=== PATIENT | male | born 1935 | race Caucasian/White ===

== ENCOUNTER 2019-05-31 15:40 | Observation (INO) ==
[2019-05-31 16:24] LABS: Basophils % 0.3 %; Eosinophils # 0.2 K/mcL (0.0-0.6); Eosinophils % 2.2 %; Hematocrit 38.6 % (37.5-50.1); Immature Granulocytes % 0.3 % (0-4); Lymphocytes # 1.8 K/mcL (0.6-4.6); Lymphocytes % 23.2 %; Mean Corpuscular HGB Conc 33.7 g/dL (31.6-35.5); Mean Corpuscular Hemoglobin 32.1 pg (28.0-33.3); Mean Corpuscular Volume 95.3 fL (83.0-100.0); Mean Platelet Volume 10.5 fL (9.4-12.4); Monocytes # 0.9 K/mcL (0.0-1.3); Monocytes % 11.1 %; Neutrophils # 4.9 K/mcL (1.6-8.9); Platelet Count 198 K/mcL (140-400); Red Blood Count 4.05 M/mcL (4.19-5.50); Red Cell Distribution Width 12.9 % (11.5-14.5); Segmented Neutrophils % 62.9 %; White Blood Count 7.8 K/mcL (4.3-11.1)
[2019-05-31 16:40] LABS: BUN/Creatinine Ratio 22 (6-26); Blood Urea Nitrogen 29 mg/dL (8-23); Calcium 9.4 mg/dL (8.6-10.3); Carbon Dioxide 27 mEq/L (23-29); Chloride 102 mEq/L (98-107); Glucose 57 mg/dL (70-105); Osmolality,Calculated 288 (280-300); Potassium 4.2 mEq/L (3.5-5.1); Sodium 137 mEq/L (136-145); eGFR For African Americans > 60 (> 60); eGFR For Non-African Americans 51 (> 60)
[2019-05-31 16:41] LABS: Troponin I 0.03 ng/mL (< 0.04)
[2019-05-31 16:54] LABS: Thyroid Stimulating Hormone 2.299 mcIU/mL (0.340-5.600)
[2019-05-31] MEDS ORDERED: KETOTIFEN FUMARATE OP PRN (17:14)
[2019-05-31] MEDS ORDERED: Naloxone 0.4 MG/ML INJ IVP PRN (17:53)
[2019-05-31] MEDS ORDERED: Dextrose Gel 15 GM/37.5 ML TUBE PO PRN ×2 (18:17)
[2019-05-31] MEDS ORDERED: D5% in Water 1,000 ML IVC PRN (18:17)
[2019-05-31] MEDS ORDERED: *HR* Dextrose 50 % in Water (Syg) 50 ML SYRINGE IVP PRN (18:17)
[2019-05-31] MEDS: Insulin LISPRO 300 UNITS/3 ML VIAL SQ SCH ×2 (19:23→20:30)
[2019-05-31] MEDS: Apixaban 5 MG TABLET PO SCH (20:30)
[2019-05-31 21:33] LABS: Bilirubin,Urine Negative (Negative); Blood,Urine Negative (Negative); Clarity,Urine Clear (Clear); Color,Urine Yellow (Yellow); Glucose,Urine (UA) Normal (Normal); Ketones,Urine Negative (Negative); Leukocyte Esterase,Urine Negative (Negative); Nitrite,Urine Negative (Negative); Protein,Urine Negative (Neg-Trace); Specific Gravity,Urine 1.011 (1.010-1.025); Urobilinogen,Urine Normal (Normal)
[2019-05-31 23:09] LABS: Adenovirus Not Detected (Not Detect); Bordetella Pertussis Not Detected (Not Detect); Chlamydophila pneumoniae Not Detected (Not Detect); Coronavirus 229E Not Detected (Not Detect); Coronavirus HKU1 Not Detected (Not Detect); Coronavirus NL63 Not Detected (Not Detect); Coronavirus OC43 Not Detected (Not Detect); Human Metapneumovirus Not Detected (Not Detect); Human Rhinovirus/Enterovirus Not Detected (Not Detect); Influenza A Subtype 2009 H1 Not Detected (Not Detect); Influenza A Untypeable Not Detected (Not Detect); Influenza B Not Detected (Not Detect); Mycoplasma pneumoniae Not Detected (Not Detect); Parainfluenza Virus 1 Not Detected (Not Detect); Parainfluenza Virus 2 Not Detected (Not Detect); Parainfluenza Virus 3 Not Detected (Not Detect); Parainfluenza Virus 4 Not Detected (Not Detect); Respiratory Syncytial Virus Not Detected (Not Detect)
[2019-06-01 01:37] LABS: Hematocrit 36.5 % (37.5-50.1); Mean Corpuscular HGB Conc 32.9 g/dL (31.6-35.5); Mean Corpuscular Hemoglobin 31.4 pg (28.0-33.3); Mean Corpuscular Volume 95.5 fL (83.0-100.0); Mean Platelet Volume 10.8 fL (9.4-12.4); Platelet Count 175 K/mcL (140-400); Red Blood Count 3.82 M/mcL (4.19-5.50); White Blood Count 7.2 K/mcL (4.3-11.1)
[2019-06-01 02:02] LABS: BUN/Creatinine Ratio 21 (6-26); Blood Urea Nitrogen 26 mg/dL (8-23); Calcium 8.9 mg/dL (8.6-10.3); Carbon Dioxide 25 mEq/L (23-29); Chloride 101 mEq/L (98-107); Glucose 259 mg/dL (70-105); Osmolality,Calculated 296 (280-300); Potassium 4.1 mEq/L (3.5-5.1); Sodium 136 mEq/L (136-145); eGFR For African Americans > 60 (> 60); eGFR For Non-African Americans 55 (> 60)
[2019-06-01] MEDS: Insulin LISPRO 300 UNITS/3 ML VIAL SQ SCH ×4 (10:31→20:43)
[2019-06-01] MEDS: Furosemide 40 MG TABLET PO SCH (10:31)
[2019-06-01] MEDS: Apixaban 5 MG TABLET PO SCH ×2 (10:31→20:45)
[2019-06-02 02:21] LABS: Hematocrit 37.6 % (37.5-50.1); Hemoglobin 12.5 g/dL (12.9-16.9); Mean Corpuscular HGB Conc 33.2 g/dL (31.6-35.5); Mean Corpuscular Hemoglobin 31.4 pg (28.0-33.3); Mean Corpuscular Volume 94.5 fL (83.0-100.0); Mean Platelet Volume 10.3 fL (9.4-12.4); Platelet Count 180 K/mcL (140-400); Red Blood Count 3.98 M/mcL (4.19-5.50); Red Cell Distribution Width 12.6 % (11.5-14.5)
[2019-06-02 02:33] LABS: BUN/Creatinine Ratio 16 (6-26); Blood Urea Nitrogen 20 mg/dL (8-23); Carbon Dioxide 27 mEq/L (23-29); Chloride 102 mEq/L (98-107); Glucose 246 mg/dL (70-105); Osmolality,Calculated 293 (280-300); Potassium 4.3 mEq/L (3.5-5.1); Sodium 136 mEq/L (136-145); eGFR For African Americans > 60 (> 60); eGFR For Non-African Americans 56 (> 60)
[2019-06-02] MEDS: Apixaban 5 MG TABLET PO SCH ×2 (09:21→20:59)
[2019-06-02] MEDS: Furosemide 40 MG TABLET PO SCH (09:21)
[2019-06-02] MEDS: Insulin LISPRO 300 UNITS/3 ML VIAL SQ SCH ×4 (09:22→20:54)
[2019-06-02] MEDS: Aspirin Enteric Coated 81 MG Tablet PO SCH (13:20)
[2019-06-02 16:35] LABS: VBG HCO3 29 mEq/L (21-27); VBG PCO2 47 mmHg (41-51); VBG PO2 103 mmHg (25-50)
[2019-06-03 02:02] LABS: Hematocrit 38.1 % (37.5-50.1); Hemoglobin 12.7 g/dL (12.9-16.9); Mean Corpuscular HGB Conc 33.3 g/dL (31.6-35.5); Mean Platelet Volume 10.4 fL (9.4-12.4); Platelet Count 187 K/mcL (140-400); Red Blood Count 3.97 M/mcL (4.19-5.50); Red Cell Distribution Width 12.6 % (11.5-14.5); White Blood Count 8.4 K/mcL (4.3-11.1)
[2019-06-03 02:18] LABS: BUN/Creatinine Ratio 20 (6-26); Blood Urea Nitrogen 23 mg/dL (8-23); Carbon Dioxide 27 mEq/L (23-29); Chloride 101 mEq/L (98-107); Glucose 171 mg/dL (70-105); Osmolality,Calculated 294 (280-300); Potassium 4.2 mEq/L (3.5-5.1); Sodium 138 mEq/L (136-145); eGFR For African Americans > 60 (> 60); eGFR For Non-African Americans 60 (> 60)
[2019-06-03] MEDS: Apixaban 5 MG TABLET PO SCH (07:56)
[2019-06-03] MEDS: Insulin LISPRO 300 UNITS/3 ML VIAL SQ SCH ×3 (07:56→17:07)
[2019-06-03] MEDS: Furosemide 40 MG TABLET PO SCH (07:56)
[2019-06-03] MEDS: Aspirin Enteric Coated 81 MG Tablet PO SCH (07:56)
[2019-06-03 15:22] VITALS: BP 166/62
== END 2019-06-03 18:35 | disposition home or self-care (01) ==
LOC: 3BNU 15:40 → EMEROOARM 15:40 → SUATTDRO 17:01 → 3BNU 18:24
PROVIDERS: ADMIT Family Medicine; ATTEND Family Medicine

== ENCOUNTER 2019-08-19 15:36 | Observation (INO) ==
[2019-08-19] MEDS ORDERED: Naloxone 0.4 MG/ML INJ IVP PRN (17:41)
[2019-08-19] MEDS ORDERED: Nitroglycerin 0.4 MG TAB.SUBL SL PRN (18:08)
[2019-08-19] MEDS ORDERED: *HR* Dextrose 50 % in Water (Syg) 50 ML SYRINGE IVP PRN (18:09)
[2019-08-19] MEDS ORDERED: Dextrose Gel 15 GM/37.5 ML TUBE PO PRN ×2 (18:09)
[2019-08-19] MEDS ORDERED: D5% in Water 1,000 ML IVC PRN (18:09)
[2019-08-19] MEDS: Apixaban 5 MG TABLET PO SCH (20:12)
[2019-08-19] MEDS: Insulin NPH/REG 70/30 100 UNIT/ML (x5UNIT) SQ SCH (20:13)
[2019-08-20 04:08] LABS: Basophils % 0.3 %; Eosinophils # 0.2 K/mcL (0.0-0.6); Eosinophils % 2.2 %; Hematocrit 38.9 % (37.5-50.1); Hemoglobin 13.2 g/dL (12.9-16.9); Immature Granulocytes % 0.4 % (0-4); Lymphocytes # 2.1 K/mcL (0.6-4.6); Lymphocytes % 27.8 %; Mean Corpuscular HGB Conc 33.9 g/dL (31.6-35.5); Mean Corpuscular Hemoglobin 31.7 pg (28.0-33.3); Mean Corpuscular Volume 93.3 fL (83.0-100.0); Mean Platelet Volume 9.6 fL (9.4-12.4); Monocytes # 0.9 K/mcL (0.0-1.3); Monocytes % 11.7 %; Neutrophils # 4.4 K/mcL (1.6-8.9); Platelet Count 217 K/mcL (140-400); Red Blood Count 4.17 M/mcL (4.19-5.50); Red Cell Distribution Width 12.7 % (11.5-14.5); Segmented Neutrophils % 57.6 %; White Blood Count 7.7 K/mcL (4.3-11.1)
[2019-08-20 04:26] LABS: BUN/Creatinine Ratio 20 (6-26); Blood Urea Nitrogen 26 mg/dL (8-23); Calcium 9.2 mg/dL (8.6-10.3); Carbon Dioxide 27 mEq/L (23-29); Chloride 106 mEq/L (98-107); Glucose 53 mg/dL (70-105); Osmolality,Calculated 294 (280-300); Sodium 141 mEq/L (136-145); eGFR For African Americans > 60 (> 60); eGFR For Non-African Americans 52 (> 60)
[2019-08-20] MEDS: Insulin NPH/REG 70/30 100 UNIT/ML (x5UNIT) SQ SCH (07:21)
[2019-08-20] MEDS: Apixaban 5 MG TABLET PO SCH (08:17)
[2019-08-20] MEDS ORDERED: Aspirin Enteric Coated 81 MG Tablet PO SCH (09:00)
[2019-08-20] MEDS ORDERED: Isosorbide MONOnitrate (24 HR) 30 MG TAB.ER.24H PO SCH (09:00)
[2019-08-20] MEDS ORDERED: Furosemide 40 MG TABLET PO SCH (09:00)
[2019-08-20 12:44] VITALS: BP 131/50
== END 2019-08-20 17:15 | disposition home or self-care (01) ==
LOC: 3BNU → SUATTDRO 17:03
PROVIDERS: ADMIT Internal Medicine; ATTEND Internal Medicine

== ENCOUNTER 2021-10-13 13:02 | Inpatient (IN) ==
[2021-10-13 13:46] LABS: Eosinophils # 0.1 K/mcL (0.0-0.6); Eosinophils % 0.7 %; Hematocrit 37.4 % (37.5-50.1); Hemoglobin 12.6 g/dL (12.9-16.9); Immature Granulocytes % 0.5 % (0-4); Lymphocytes # 0.5 K/mcL (0.6-4.6); Lymphocytes % 5.9 %; Mean Corpuscular HGB Conc 33.7 g/dL (31.6-35.5); Mean Corpuscular Hemoglobin 31.7 pg (28.0-33.3); Mean Corpuscular Volume 94.2 fL (83.0-100.0); Mean Platelet Volume 9.3 fL (9.4-12.4); Monocytes # 0.8 K/mcL (0.0-1.3); Monocytes % 10.8 %; Platelet Count 264 K/mcL (140-400); Red Blood Count 3.97 M/mcL (4.19-5.50); Red Cell Distribution Width 12.9 % (11.5-14.5); Segmented Neutrophils % 82.1 %; White Blood Count 7.6 K/mcL (4.3-11.1)
[2021-10-13 13:51] LABS: VBG HCO3 27 mEq/L (21-27); VBG PCO2 48 mmHg (41-51); VBG PH 7.36 pH Units (7.32-7.42); VBG PO2 28 mmHg (25-50)
[2021-10-13 14:09] LABS: Alanine Aminotransferase 16 Units/L (7-52); Albumin 3.2 g/dL (3.5-5.7); Alkaline Phosphatase 151 Units/L (34-104); Aspartate Amino Transferase 21 Units/L (13-39); BUN/Creatinine Ratio 24 (6-26); Bilirubin,Direct 0.4 mg/dL (0.0-0.2); Bilirubin,Indirect 0.8 mg/dL (0.0-1.0); Bilirubin,Total 1.2 mg/dL (0.3-1.0); Blood Urea Nitrogen 23 mg/dL (8-23); C-Reactive Protein 248 mg/L (Less than 10); Calcium 8.8 mg/dL (8.6-10.3); Carbon Dioxide 27 mEq/L (23-29); Chloride 96 mEq/L (98-107); Globulin 3.3 g/dL (2.4-3.5); Glucose 223 mg/dL (70-105); Osmolality,Calculated 283 (280-300); Potassium 3.8 mEq/L (3.5-5.1); Sodium 131 mEq/L (136-145); Total Protein 6.5 g/dL (6.4-8.9); Troponin I 0.04 ng/mL (< 0.04); eGFR For African Americans > 60 (> 60); eGFR For Non-African Americans > 60 (> 60)
[2021-10-13 14:11] LABS: Neutrophils # 6.2 K/mcL (1.6-8.9)
[2021-10-13] MEDS ORDERED: Ondansetron ODT 4 MG TAB.RAPDIS SL PRN (15:57)
[2021-10-13] MEDS ORDERED: Naloxone 0.4 MG/ML INJ IVP PRN (15:57)
[2021-10-13] MEDS ORDERED: D5% in Water 1,000 ML IVC PRN (16:06)
[2021-10-13] MEDS ORDERED: *HR* Dextrose 50 % in Water (Syg) 50 ML SYRINGE IVP PRN (16:06)
[2021-10-13] MEDS ORDERED: Dextrose Gel 15 GM/37.5 ML TUBE PO PRN ×2 (16:06)
[2021-10-13 18:22] LABS: Estimated Average Glucose 209 mg/dl; Hemoglobin A1C 8.9 %
[2021-10-13] MEDS: Insulin LISPRO 300 UNITS/3 ML VIAL SUBQ SCH (18:27)
[2021-10-13 18:56] LABS: Folate 12.3 ng/mL (3.0-16.0)
[2021-10-13] MEDS ORDERED: (Ketotifen Fumarate [Zaditor] 5 ML Drops) OP PRN (20:09)
[2021-10-13] MEDS ORDERED: Nitroglycerin 0.4 MG TAB.SUBL SL PRN (20:09)
[2021-10-13 21:17] LABS: Procalcitonin 0.19 ng/mL (0.00-0.15)
[2021-10-13] MEDS: Lactobacillus 1 EACH CAP.SPRINK PO SCH (21:24)
[2021-10-13] MEDS: Apixaban 5 MG TABLET PO SCH (21:24)
[2021-10-13] MEDS: Lidocaine 5% OINT 35 APPL/35.44 GM TUBE TP SCH (21:24)
[2021-10-13] MEDS: Artificial Tears SOLN 15 ML BOTTLE BOTH EYES SCH (21:24)
[2021-10-14 00:54] LABS: Basophils % 0.2 %; Hematocrit 35.5 % (37.5-50.1); Hemoglobin 11.7 g/dL (12.9-16.9); Immature Granulocytes % 0.4 % (0-4); Lymphocytes # 0.2 K/mcL (0.6-4.6); Lymphocytes % 4.5 %; Mean Corpuscular Hemoglobin 31.2 pg (28.0-33.3); Mean Corpuscular Volume 94.7 fL (83.0-100.0); Mean Platelet Volume 9.4 fL (9.4-12.4); Monocytes # 0.3 K/mcL (0.0-1.3); Monocytes % 5.3 %; Neutrophils # 4.8 K/mcL (1.6-8.9); Platelet Count 246 K/mcL (140-400); Red Blood Count 3.75 M/mcL (4.19-5.50); Red Cell Distribution Width 12.9 % (11.5-14.5); Segmented Neutrophils % 89.6 %; White Blood Count 5.3 K/mcL (4.3-11.1)
[2021-10-14 02:43] LABS: BUN/Creatinine Ratio 25 (6-26); Blood Urea Nitrogen 25 mg/dL (8-23); Calcium 8.3 mg/dL (8.6-10.3); Carbon Dioxide 20 mEq/L (23-29); Chloride 98 mEq/L (98-107); Glucose 325 mg/dL (70-105); Osmolality,Calculated 285 (280-300); Potassium 4.6 mEq/L (3.5-5.1); Sodium 129 mEq/L (136-145); eGFR For African Americans > 60 (> 60); eGFR For Non-African Americans > 60 (> 60)
[2021-10-14] MEDS: Lactobacillus 1 EACH CAP.SPRINK PO SCH ×2 (09:17→21:03)
[2021-10-14] MEDS: Isosorbide MONOnitrate (24 HR) 30 MG TAB.ER.24H PO SCH (09:17)
[2021-10-14] MEDS: Apixaban 5 MG TABLET PO SCH ×2 (09:17→21:03)
[2021-10-14] MEDS: Artificial Tears SOLN 15 ML BOTTLE BOTH EYES SCH ×3 (09:18→21:03)
[2021-10-14] MEDS: Lidocaine 5% OINT 35 APPL/35.44 GM TUBE TP SCH ×4 (09:18→21:03)
[2021-10-14] MEDS: Aspirin Enteric Coated 81 MG Tablet PO SCH (09:18)
[2021-10-14] MEDS: Loratadine 10 MG TABLET PO SCH (09:18)
[2021-10-14] MEDS: Insulin LISPRO 300 UNITS/3 ML VIAL SUBQ SCH ×3 (09:19→17:19)
[2021-10-14] MEDS: Insulin DETEMIR 100 UNIT/ML X5UNITS SUBQ SCH (13:56)
[2021-10-15 07:10] LABS: Basophils % 0.1 %; Hematocrit 33.9 % (37.5-50.1); Hemoglobin 11.7 g/dL (12.9-16.9); Immature Granulocytes % 1.1 % (0-4); Lymphocytes # 0.6 K/mcL (0.6-4.6); Lymphocytes % 4.7 %; Mean Corpuscular HGB Conc 34.5 g/dL (31.6-35.5); Mean Corpuscular Hemoglobin 32.5 pg (28.0-33.3); Mean Corpuscular Volume 94.2 fL (83.0-100.0); Mean Platelet Volume 9.6 fL (9.4-12.4); Monocytes % 8.3 %; Platelet Count 297 K/mcL (140-400); Red Cell Distribution Width 12.9 % (11.5-14.5); Segmented Neutrophils % 85.8 %
[2021-10-15 07:30] LABS: BUN/Creatinine Ratio 39 (6-26); Blood Urea Nitrogen 37 mg/dL (8-23); Calcium 9.1 mg/dL (8.6-10.3); Carbon Dioxide 27 mEq/L (23-29); Chloride 98 mEq/L (98-107); Glucose 118 mg/dL (70-105); Magnesium 2.2 mg/dL (1.6-2.6); Osmolality,Calculated 282 (280-300); Phosphorous 2.5 mg/dL (2.7-4.5); Potassium 4.1 mEq/L (3.5-5.1); Sodium 131 mEq/L (136-145); eGFR For African Americans > 60 (> 60); eGFR For Non-African Americans > 60 (> 60)
[2021-10-15 07:36] LABS: Neutrophils # 10.1 K/mcL (1.6-8.9); White Blood Count 11.8 K/mcL (4.3-11.1)
[2021-10-15] MEDS: Insulin LISPRO 300 UNITS/3 ML VIAL SUBQ SCH ×4 (08:56→20:21)
[2021-10-15] MEDS: Artificial Tears SOLN 15 ML BOTTLE BOTH EYES SCH ×3 (08:57→20:23)
[2021-10-15] MEDS: Loratadine 10 MG TABLET PO SCH (08:59)
[2021-10-15] MEDS: Isosorbide MONOnitrate (24 HR) 30 MG TAB.ER.24H PO SCH (08:59)
[2021-10-15] MEDS: Insulin DETEMIR 100 UNIT/ML X5UNITS SUBQ SCH (08:59)
[2021-10-15] MEDS: Lactobacillus 1 EACH CAP.SPRINK PO SCH ×2 (08:59→20:22)
[2021-10-15] MEDS: Aspirin Enteric Coated 81 MG Tablet PO SCH (08:59)
[2021-10-15] MEDS: Apixaban 5 MG TABLET PO SCH ×2 (08:59→20:22)
[2021-10-15] MEDS: Lidocaine 5% OINT 35 APPL/35.44 GM TUBE TP SCH ×4 (09:01→20:23)
[2021-10-15] MEDS ORDERED: Insulin DETEMIR 100 UNIT/ML X5UNITS SUBQ ONE (21:30)
[2021-10-15] MEDS ORDERED: Insulin LISPRO 300 UNITS/3 ML VIAL SUBQ ONE (23:58)
[2021-10-16 01:50] LABS: Basophils % 0.1 %; Hematocrit 32.9 % (37.5-50.1); Hemoglobin 11.1 g/dL (12.9-16.9); Immature Granulocytes % 0.7 % (0-4); Lymphocytes # 0.6 K/mcL (0.6-4.6); Lymphocytes % 4.2 %; Mean Corpuscular HGB Conc 33.7 g/dL (31.6-35.5); Mean Corpuscular Hemoglobin 31.8 pg (28.0-33.3); Mean Corpuscular Volume 94.3 fL (83.0-100.0); Mean Platelet Volume 9.7 fL (9.4-12.4); Monocytes % 7.2 %; Neutrophils # 11.6 K/mcL (1.6-8.9); Platelet Count 328 K/mcL (140-400); Red Blood Count 3.49 M/mcL (4.19-5.50); Red Cell Distribution Width 12.8 % (11.5-14.5); Segmented Neutrophils % 87.8 %; White Blood Count 13.2 K/mcL (4.3-11.1)
[2021-10-16 02:05] LABS: BUN/Creatinine Ratio 45 (6-26); Blood Urea Nitrogen 45 mg/dL (8-23); Calcium 8.8 mg/dL (8.6-10.3); Carbon Dioxide 27 mEq/L (23-29); Chloride 98 mEq/L (98-107); Glucose 280 mg/dL (70-105); Osmolality,Calculated 294 (280-300); Potassium 4.5 mEq/L (3.5-5.1); Sodium 131 mEq/L (136-145); eGFR For African Americans > 60 (> 60); eGFR For Non-African Americans > 60 (> 60)
[2021-10-16 02:07] LABS: Magnesium 2.1 mg/dL (1.6-2.6); Phosphorous 2.5 mg/dL (2.7-4.5)
[2021-10-16] MEDS: Insulin LISPRO 300 UNITS/3 ML VIAL SUBQ SCH ×4 (07:26→20:58)
[2021-10-16] MEDS: Lidocaine 5% OINT 35 APPL/35.44 GM TUBE TP SCH ×4 (07:27→20:58)
[2021-10-16] MEDS: Lactobacillus 1 EACH CAP.SPRINK PO SCH ×2 (08:02→20:58)
[2021-10-16] MEDS: Loratadine 10 MG TABLET PO SCH (08:03)
[2021-10-16] MEDS: Isosorbide MONOnitrate (24 HR) 30 MG TAB.ER.24H PO SCH (08:03)
[2021-10-16] MEDS: Aspirin Enteric Coated 81 MG Tablet PO SCH (08:03)
[2021-10-16] MEDS: Apixaban 5 MG TABLET PO SCH ×2 (08:03→20:58)
[2021-10-16] MEDS: Insulin DETEMIR 100 UNIT/ML X5UNITS SUBQ SCH (08:04)
[2021-10-16] MEDS: Artificial Tears SOLN 15 ML BOTTLE BOTH EYES SCH ×3 (08:05→20:58)
[2021-10-16] MEDS ORDERED: Sodium Phosphate 30 MMOL in D5% in Water 100 ML IVPB ONE (08:18)
[2021-10-16] MEDS ORDERED: Furosemide 20 MG/2 ML VIAL IVP ONE (16:15)
[2021-10-17 06:27] LABS: Basophils % 0.1 %; Hematocrit 38.3 % (37.5-50.1); Immature Granulocytes % 0.8 % (0-4); Lymphocytes # 0.9 K/mcL (0.6-4.6); Lymphocytes % 5.6 %; Mean Corpuscular HGB Conc 33.7 g/dL (31.6-35.5); Mean Corpuscular Hemoglobin 32.4 pg (28.0-33.3); Mean Corpuscular Volume 96.2 fL (83.0-100.0); Mean Platelet Volume 9.9 fL (9.4-12.4); Monocytes % 5.7 %; Neutrophils # 14.7 K/mcL (1.6-8.9); Platelet Count 336 K/mcL (140-400); Red Blood Count 3.98 M/mcL (4.19-5.50); Red Cell Distribution Width 13.2 % (11.5-14.5); Segmented Neutrophils % 87.8 %; White Blood Count 16.7 K/mcL (4.3-11.1)
[2021-10-17 06:29] LABS: Hemoglobin 12.9 g/dL (12.9-16.9)
[2021-10-17 06:50] LABS: BUN/Creatinine Ratio 48 (6-26); Blood Urea Nitrogen 48 mg/dL (8-23); Calcium 9.4 mg/dL (8.6-10.3); Carbon Dioxide 26 mEq/L (23-29); Chloride 94 mEq/L (98-107); Glucose 244 mg/dL (70-105); Magnesium 2.2 mg/dL (1.6-2.6); Osmolality,Calculated 289 (280-300); Phosphorous 3.7 mg/dL (2.7-4.5); Potassium 5.1 mEq/L (3.5-5.1); Sodium 129 mEq/L (136-145); eGFR For African Americans > 60 (> 60); eGFR For Non-African Americans > 60 (> 60)
[2021-10-17] MEDS ORDERED: Furosemide 40 MG/4 ML VIAL IVP ONE (08:21)
[2021-10-17] MEDS: Apixaban 5 MG TABLET PO SCH ×2 (09:23→21:43)
[2021-10-17] MEDS: Lactobacillus 1 EACH CAP.SPRINK PO SCH ×2 (09:23→21:43)
[2021-10-17] MEDS: Loratadine 10 MG TABLET PO SCH (09:23)
[2021-10-17] MEDS: Isosorbide MONOnitrate (24 HR) 30 MG TAB.ER.24H PO SCH (09:23)
[2021-10-17] MEDS: Cholecalciferol (D-3) 1,000 UNIT (25MCG) TABLET PO SCH (09:23)
[2021-10-17] MEDS: Aspirin Enteric Coated 81 MG Tablet PO SCH (09:24)
[2021-10-17] MEDS: Artificial Tears SOLN 15 ML BOTTLE BOTH EYES SCH ×3 (09:24→21:43)
[2021-10-17] MEDS: Insulin LISPRO 300 UNITS/3 ML VIAL SUBQ SCH ×4 (09:24→21:11)
[2021-10-17] MEDS: Lidocaine 5% OINT 35 APPL/35.44 GM TUBE TP SCH ×4 (09:25→21:43)
[2021-10-17 10:35] LABS: Albumin 3.2 g/dL (3.5-5.7); Bilirubin,Direct 0.3 mg/dL (0.0-0.2); Bilirubin,Indirect 0.8 mg/dL (0.0-1.0); Bilirubin,Total 1.1 mg/dL (0.3-1.0); Globulin 3.1 g/dL (2.4-3.5); Total Protein 6.3 g/dL (6.4-8.9)
[2021-10-17] MEDS: Insulin DETEMIR 100 UNIT/ML X5UNITS SUBQ SCH (11:34)
[2021-10-17] MEDS ORDERED: Isovue-370 500 ML BOTTLE IVP ONE (13:37)
[2021-10-18 06:30] LABS: Basophils % 0.1 %; Hemoglobin 12.3 g/dL (12.9-16.9); Immature Granulocytes % 0.8 % (0-4); Lymphocytes # 0.5 K/mcL (0.6-4.6); Lymphocytes % 3.3 %; Mean Corpuscular HGB Conc 34.2 g/dL (31.6-35.5); Mean Corpuscular Volume 93.8 fL (83.0-100.0); Mean Platelet Volume 9.9 fL (9.4-12.4); Monocytes # 0.6 K/mcL (0.0-1.3); Monocytes % 3.6 %; Neutrophils # 14.7 K/mcL (1.6-8.9); Platelet Count 326 K/mcL (140-400); Red Blood Count 3.84 M/mcL (4.19-5.50); Red Cell Distribution Width 13.2 % (11.5-14.5); Segmented Neutrophils % 92.2 %
[2021-10-18 06:42] LABS: BUN/Creatinine Ratio 49 (6-26); Blood Urea Nitrogen 53 mg/dL (8-23); Calcium 9.2 mg/dL (8.6-10.3); Carbon Dioxide 30 mEq/L (23-29); Chloride 94 mEq/L (98-107); Glucose 213 mg/dL (70-105); Osmolality,Calculated 295 (280-300); Potassium 5.4 mEq/L (3.5-5.1); Sodium 132 mEq/L (136-145); eGFR For African Americans > 60 (> 60); eGFR For Non-African Americans > 60 (> 60)
[2021-10-18] MEDS ORDERED: *HR* Heparin 5,000 UNIT/ML VIAL IVP ONE (07:41)
[2021-10-18] MEDS ORDERED: *HR* Heparin 5,000 UNIT/ML VIAL IVP PRN ×2 (07:41)
[2021-10-18 09:35] LABS: INR 1.7; Prothrombin Time 19.3 Seconds (9.4-12.1)
[2021-10-18 09:40] LABS: Heparin anti-factor XA UFH 1.63 IU/mL (0.30-0.70)
[2021-10-18] MEDS ORDERED: Morphine Sulfate 2 MG/ML SYRINGE IVP ONE (10:10)
[2021-10-18 10:13] LABS: C-Reactive Protein 250 mg/L (Less than 10)
[2021-10-18] MEDS: Norepinephrine 4 MG/254 ML IV.SOLN IVC SCH ×2 (10:48→19:36)
[2021-10-18] MEDS ORDERED: *HR* Midazolam HCl 5 MG/5 ML VIAL IVP ONE (11:01)
[2021-10-18] MEDS ORDERED: *HR* Etomidate 20 MG/10 ML AMPUL IVP ONE (11:01)
[2021-10-18] MEDS ORDERED: 0.9 % Sodium Chloride 1,000 ML ONE (11:10)
[2021-10-18] MEDS: Cholecalciferol (D-3) 1,000 UNIT (25MCG) TABLET PO SCH (11:12)
[2021-10-18] MEDS: Loratadine 10 MG TABLET PO SCH (11:12)
[2021-10-18] MEDS: Isosorbide MONOnitrate (24 HR) 30 MG TAB.ER.24H PO SCH (11:12)
[2021-10-18] MEDS: Lactobacillus 1 EACH CAP.SPRINK PO SCH ×2 (11:12→20:08)
[2021-10-18] MEDS: Aspirin Enteric Coated 81 MG Tablet PO SCH (11:13)
[2021-10-18] MEDS: FentaNYL (PF) 1,000 MCG/100 ML IV.SOLN IVC SCH ×2 (11:22→21:41)
[2021-10-18] MEDS: Cisatracurium 200 MG in 0.9 % Sodium Chloride 180 ML IVC SCH ×2 (11:35→23:15)
[2021-10-18] MEDS: Insulin DETEMIR 100 UNIT/ML X5UNITS SUBQ SCH (13:57)
[2021-10-18] MEDS: Heparin 25,000UNIT/250ML 1/2NS 25,000 UNIT/250 ML IV.SOLN IVC SCH ×2 (13:57→21:00)
[2021-10-18] MEDS: Artificial Tears SOLN 15 ML BOTTLE BOTH EYES SCH ×3 (13:57→20:08)
[2021-10-18] MEDS: Lidocaine 5% OINT 35 APPL/35.44 GM TUBE TP SCH ×3 (13:58→20:09)
[2021-10-18] MEDS: Insulin LISPRO 300 UNITS/3 ML VIAL SUBQ SCH ×4 (13:58→20:38)
[2021-10-18 15:14] LABS: ABG Base Excess -2 mEq/L (-2 to 3); ABG HCO3 26 mEq/L (21-27); ABG Oxygen Saturation 87 % (95-98); ABG PCO2 56 mmHg (35-45); ABG PH 7.27 pH Units (7.32-7.45); ABG PO2 60 mmHg (85-104); ABG TCO2 28 mEq/L (20-26); Blood Gas VT 400 cc
[2021-10-18] MEDS: Piperacillin/Tazobactam 3.375 GM in 0.9 % Sodium Chloride Mini Bag 100 ML IVPB SCH (20:07)
[2021-10-18] MEDS: Vancomycin 1,250 MG/262.5 ML IV.SOLN IVPB SCH (20:08)
[2021-10-18 21:13] LABS: ABG Base Excess 0 mEq/L (-2 to 3); ABG HCO3 26 mEq/L (21-27); ABG Oxygen Saturation 100 % (95-98); ABG PCO2 45 mmHg (35-45); ABG PH 7.37 pH Units (7.32-7.45); ABG PO2 235 mmHg (85-104); ABG TCO2 27 mEq/L (20-26); Blood Gas Modality AF; Blood Gas VT 400 cc
[2021-10-19] MEDS: Norepinephrine 4 MG/254 ML IV.SOLN IVC SCH ×6 (01:52→23:00)
[2021-10-19] MEDS: FentaNYL (PF) 1,000 MCG/100 ML IV.SOLN IVC SCH ×5 (02:47→23:23)
[2021-10-19] MEDS: Piperacillin/Tazobactam 3.375 GM in 0.9 % Sodium Chloride Mini Bag 100 ML IVPB SCH ×3 (03:18→20:10)
[2021-10-19 04:04] LABS: ABG Base Excess -1 mEq/L (-2 to 3); ABG HCO3 25 mEq/L (21-27); ABG Oxygen Saturation 100 % (95-98); ABG PCO2 42 mmHg (35-45); ABG PH 7.38 pH Units (7.32-7.45); ABG PO2 190 mmHg (85-104); ABG TCO2 26 mEq/L (20-26); Blood Gas Modality AF; Blood Gas VT 400 cc
[2021-10-19 04:22] LABS: Basophils % 0.1 %; Hematocrit 37.5 % (37.5-50.1); Hemoglobin 12.3 g/dL (12.9-16.9); Immature Granulocytes % 0.7 % (0-4); Lymphocytes # 0.9 K/mcL (0.6-4.6); Lymphocytes % 5.9 %; Mean Corpuscular HGB Conc 32.8 g/dL (31.6-35.5); Mean Corpuscular Hemoglobin 31.1 pg (28.0-33.3); Mean Corpuscular Volume 94.9 fL (83.0-100.0); Mean Platelet Volume 10.5 fL (9.4-12.4); Monocytes # 0.7 K/mcL (0.0-1.3); Neutrophils # 13.1 K/mcL (1.6-8.9); Nucleated Red Blood Cells 0.1 /100 WBC (0); Platelet Count 356 K/mcL (140-400); Red Blood Count 3.95 M/mcL (4.19-5.50); Red Cell Distribution Width 13.2 % (11.5-14.5); Segmented Neutrophils % 88.3 %; White Blood Count 14.8 K/mcL (4.3-11.1)
[2021-10-19 04:43] LABS: Calcium 8.1 mg/dL (8.6-10.3); Magnesium 2.1 mg/dL (1.6-2.6); Phosphorous 5.7 mg/dL (2.7-4.5); Potassium 6.1 mEq/L (3.5-5.1)
[2021-10-19 05:07] LABS: VBG Ionized Calcium 1.11 mmol/L (1.15-1.35)
[2021-10-19] MEDS ORDERED: Calcium Gluconate 1gm/50mL 1 GM/50 ML BAG IVPB ONE ×3 (05:44→16:02)
[2021-10-19] MEDS ORDERED: *HR* Dextrose 50 % in Water (Syg) 50 ML SYRINGE IVP ONE ×2 (05:45→16:00)
[2021-10-19] MEDS ORDERED: Insulin Human Regular 10 UNIT in 0.9 % Sodium Chloride 10 ML IV ONE ×3 (05:45→15:13)
[2021-10-19] MEDS: Pantoprazole 40 MG VIAL IVP SCH (07:42)
[2021-10-19] MEDS: Aspirin Enteric Coated 81 MG Tablet PO SCH (07:43)
[2021-10-19] MEDS: Cholecalciferol (D-3) 1,000 UNIT (25MCG) TABLET PO SCH (07:43)
[2021-10-19] MEDS: Lactobacillus 1 EACH CAP.SPRINK PO SCH ×2 (07:43→20:12)
[2021-10-19] MEDS: Insulin DETEMIR 100 UNIT/ML X5UNITS SUBQ SCH (08:18)
[2021-10-19] MEDS: Insulin LISPRO 300 UNITS/3 ML VIAL SUBQ SCH ×3 (08:27→18:00)
[2021-10-19] MEDS: Cholecalciferol (D-3) 1,000 UNIT (25MCG) TABLET GTUBE SCH (08:29)
[2021-10-19] MEDS: Artificial Tears SOLN 15 ML BOTTLE BOTH EYES SCH ×7 (08:31→23:09)
[2021-10-19] MEDS: Isosorbide MONOnitrate (24 HR) 30 MG TAB.ER.24H PO SCH (09:18)
[2021-10-19] MEDS: Loratadine 10 MG TABLET GTUBE SCH (09:18)
[2021-10-19] MEDS: Lidocaine 5% OINT 35 APPL/35.44 GM TUBE TP SCH ×6 (11:58→20:12)
[2021-10-19] MEDS: Cisatracurium 200 MG in 0.9 % Sodium Chloride 180 ML IVC SCH (12:04)
[2021-10-19 14:46] LABS: Calcium 8.2 mg/dL (8.6-10.3); Potassium 6.3 mEq/L (3.5-5.1)
[2021-10-19] MEDS ORDERED: Calcium Chloride 1,000 MG in 0.9 % Sodium Chloride 100 ML IVPB ONE (16:00)
[2021-10-19] MEDS: SODIUM ZIRCONIUM CYCLOSILICATE 5 GM POWD.PACK PO SCH ×2 (16:11→23:09)
[2021-10-19] MEDS: Vasopressin 40 UNIT in D5% in Water 100 ML IVC SCH (17:27)
[2021-10-19] MEDS: 0.9 % Sodium Chloride 1,000 ML IVC SCH (17:27)
[2021-10-19 18:11] LABS: Amorphous Sediment,Urine Few per hpf (None-Few); Bilirubin,Urine Negative (Negative); Blood,Urine Large (Negative); Clarity,Urine Turbid (Clear); Color,Urine Yellow (Yellow); Glucose,Urine (UA) 50 mg/dL (Normal); Ketones,Urine Negative (Negative); Leukocyte Esterase,Urine Negative (Negative); Nitrite,Urine Negative (Negative); PH,Urine 5.5 pH Units (5.0-8.0); Protein,Urine 30 mg/dL (Neg-Trace); RBC,Urine 50-100 per hpf (0-3); Specific Gravity,Urine 1.028 (1.010-1.025); Urobilinogen,Urine Normal (Normal)
[2021-10-19 18:32] LABS: Sodium, Urine 33.6 mEq/L
[2021-10-19 18:42] LABS: Calcium 8.4 mg/dL (8.6-10.3); Potassium 6.5 mEq/L (3.5-5.1); Uric Acid 8.7 mg/dL (2.3-7.6)
[2021-10-19] MEDS ORDERED: Vancomycin 500 MG in 0.9 % Sodium Chloride Mini Bag 100 ML IVPB ONE (19:07)
[2021-10-19] MEDS: Chlorhexidine Rinse 15 ML MOUTHWASH MM SCH (20:11)
[2021-10-20] MEDS: Cisatracurium 200 MG in 0.9 % Sodium Chloride 180 ML IVC SCH ×3 (00:24→21:45)
[2021-10-20] MEDS: 0.9 % Sodium Chloride 1,000 ML IVC SCH ×4 (01:30→22:50)
[2021-10-20] MEDS: Norepinephrine 4 MG/254 ML IV.SOLN IVC SCH ×4 (03:42→21:20)
[2021-10-20] MEDS: Piperacillin/Tazobactam 3.375 GM in 0.9 % Sodium Chloride Mini Bag 100 ML IVPB SCH ×3 (03:51→18:27)
[2021-10-20] MEDS: Artificial Tears SOLN 15 ML BOTTLE BOTH EYES SCH ×6 (03:51→23:50)
[2021-10-20 03:58] LABS: Calcium 7.7 mg/dL (8.6-10.3); Magnesium 2.2 mg/dL (1.6-2.6); Phosphorous 5.3 mg/dL (2.7-4.5); Potassium 5.6 mEq/L (3.5-5.1)
[2021-10-20 04:01] LABS: Basophils % 0.1 %; Hematocrit 37.5 % (37.5-50.1); Hemoglobin 12.3 g/dL (12.9-16.9); Immature Granulocytes % 1.4 % (0-4); Lymphocytes # 0.6 K/mcL (0.6-4.6); Lymphocytes % 4.1 %; Mean Corpuscular HGB Conc 32.8 g/dL (31.6-35.5); Mean Corpuscular Hemoglobin 31.5 pg (28.0-33.3); Mean Corpuscular Volume 96.2 fL (83.0-100.0); Mean Platelet Volume 10.3 fL (9.4-12.4); Monocytes # 0.9 K/mcL (0.0-1.3); Monocytes % 5.9 %; Neutrophils # 13.2 K/mcL (1.6-8.9); Nucleated Red Blood Cells 0.3 /100 WBC (0); Platelet Count 353 K/mcL (140-400); Red Cell Distribution Width 13.5 % (11.5-14.5); Segmented Neutrophils % 88.5 %
[2021-10-20 04:06] LABS: VBG Ionized Calcium 1.08 mmol/L (1.15-1.35)
[2021-10-20] MEDS: FentaNYL (PF) 1,000 MCG/100 ML IV.SOLN IVC SCH ×4 (04:44→20:22)
[2021-10-20 04:45] LABS: Heparin anti-factor XA UFH 0.69 IU/mL (0.30-0.70)
[2021-10-20 04:51] LABS: ABG Base Excess -2 mEq/L (-2 to 3); ABG HCO3 24 mEq/L (21-27); ABG Oxygen Saturation 99 % (95-98); ABG PCO2 46 mmHg (35-45); ABG PH 7.34 pH Units (7.32-7.45); ABG PO2 161 mmHg (85-104); ABG TCO2 26 mEq/L (20-26); Blood Gas Modality ASSIST CONTROL; Blood Gas VT 400 cc
[2021-10-20] MEDS ORDERED: Calcium Gluconate 1gm/50mL 1 GM/50 ML BAG IVPB ONE (06:58)
[2021-10-20] MEDS: Heparin 25,000UNIT/250ML 1/2NS 25,000 UNIT/250 ML IV.SOLN IVC SCH (08:02)
[2021-10-20] MEDS: Lactobacillus 1 EACH CAP.SPRINK PO SCH ×2 (08:52→20:24)
[2021-10-20] MEDS: SODIUM ZIRCONIUM CYCLOSILICATE 5 GM POWD.PACK PO SCH ×3 (08:52→23:51)
[2021-10-20] MEDS: Cholecalciferol (D-3) 1,000 UNIT (25MCG) TABLET GTUBE SCH (08:52)
[2021-10-20] MEDS: Loratadine 10 MG TABLET GTUBE SCH (08:52)
[2021-10-20] MEDS: Pantoprazole 40 MG VIAL IVP SCH (08:52)
[2021-10-20] MEDS: Aspirin Enteric Coated 81 MG Tablet PO SCH (08:52)
[2021-10-20] MEDS: Chlorhexidine Rinse 15 ML MOUTHWASH MM SCH ×2 (08:58→20:24)
[2021-10-20] MEDS: Lidocaine 5% OINT 35 APPL/35.44 GM TUBE TP SCH ×4 (09:00→20:25)
[2021-10-20] MEDS: Vasopressin 40 UNIT in D5% in Water 100 ML IVC SCH (14:17)
[2021-10-20] MEDS: Vancomycin 1,250 MG/262.5 ML IV.SOLN IVPB SCH (15:59)
[2021-10-20 16:02] LABS: Appearance of Body Fluid Slightly Hazy (Clear); Volume of Body Fluid 29 mL
[2021-10-20] MEDS: Insulin LISPRO 300 UNITS/3 ML VIAL SUBQ SCH ×3 (16:55→23:51)
[2021-10-21] MEDS: Norepinephrine 4 MG/254 ML IV.SOLN IVC SCH ×2 (01:00→06:08)
[2021-10-21] MEDS: FentaNYL (PF) 1,000 MCG/100 ML IV.SOLN IVC SCH ×5 (01:22→23:18)
[2021-10-21] MEDS: Piperacillin/Tazobactam 3.375 GM in 0.9 % Sodium Chloride Mini Bag 100 ML IVPB SCH ×3 (03:58→18:16)
[2021-10-21] MEDS: Artificial Tears SOLN 15 ML BOTTLE BOTH EYES SCH ×6 (03:59→23:38)
[2021-10-21] MEDS: Insulin LISPRO 300 UNITS/3 ML VIAL SUBQ SCH ×6 (03:59→23:39)
[2021-10-21 04:26] LABS: ABG Base Excess -6 mEq/L (-2 to 3); ABG HCO3 19 mEq/L (21-27); ABG Oxygen Saturation 97 % (95-98); ABG PCO2 36 mmHg (35-45); ABG PH 7.34 pH Units (7.32-7.45); ABG PO2 95 mmHg (85-104); ABG TCO2 20 mEq/L (20-26); Blood Gas Modality AF; Blood Gas VT 400 cc
[2021-10-21 04:48] LABS: Calcium 7.3 mg/dL (8.6-10.3); Magnesium 2.2 mg/dL (1.6-2.6); Phosphorous 5.3 mg/dL (2.7-4.5); Potassium 6.2 mEq/L (3.5-5.1)
[2021-10-21 04:52] LABS: Basophils % 0.2 %; Eosinophils % 0.2 %; Hematocrit 39.1 % (37.5-50.1); Hemoglobin 12.6 g/dL (12.9-16.9); Immature Granulocytes % 1.1 % (0-4); Lymphocytes # 0.5 K/mcL (0.6-4.6); Lymphocytes % 2.8 %; Mean Corpuscular HGB Conc 32.2 g/dL (31.6-35.5); Mean Corpuscular Hemoglobin 31.4 pg (28.0-33.3); Mean Corpuscular Volume 97.5 fL (83.0-100.0); Mean Platelet Volume 10.7 fL (9.4-12.4); Monocytes % 5.6 %; Neutrophils # 15.9 K/mcL (1.6-8.9); Nucleated Red Blood Cells 0.8 /100 WBC (0); Platelet Count 321 K/mcL (140-400); Red Blood Count 4.01 M/mcL (4.19-5.50); Red Cell Distribution Width 13.9 % (11.5-14.5); Segmented Neutrophils % 90.1 %; White Blood Count 17.7 K/mcL (4.3-11.1)
[2021-10-21 05:06] LABS: VBG Ionized Calcium 1.02 mmol/L (1.15-1.35)
[2021-10-21] MEDS ORDERED: Calcium Gluconate 1gm/50mL 1 GM/50 ML BAG IVPB ONE ×2 (05:15→11:26)
[2021-10-21] MEDS: 0.9 % Sodium Chloride 1,000 ML IVC SCH ×3 (05:38→18:15)
[2021-10-21] MEDS: Pantoprazole 40 MG VIAL IVP SCH (08:22)
[2021-10-21] MEDS: Lactobacillus 1 EACH CAP.SPRINK PO SCH ×2 (08:22→20:10)
[2021-10-21] MEDS: Cholecalciferol (D-3) 1,000 UNIT (25MCG) TABLET GTUBE SCH (08:22)
[2021-10-21] MEDS: Chlorhexidine Rinse 15 ML MOUTHWASH MM SCH ×2 (08:22→20:10)
[2021-10-21] MEDS: SODIUM ZIRCONIUM CYCLOSILICATE 5 GM POWD.PACK PO SCH (08:22)
[2021-10-21] MEDS: Lidocaine 5% OINT 35 APPL/35.44 GM TUBE TP SCH ×4 (08:23→20:00)
[2021-10-21] MEDS: Heparin 25,000UNIT/250ML 1/2NS 25,000 UNIT/250 ML IV.SOLN IVC SCH (08:23)
[2021-10-21] MEDS: Cisatracurium 200 MG in 0.9 % Sodium Chloride 180 ML IVC SCH (08:24)
[2021-10-21] MEDS: Aspirin 81 MG TAB.CHEW GTUBE SCH (10:39)
[2021-10-21] MEDS: Apixaban 5 MG TABLET PO SCH ×2 (10:39→20:11)
[2021-10-21] MEDS: Vasopressin 40 UNIT in D5% in Water 100 ML IVC SCH (12:11)
[2021-10-22] MEDS: 0.9 % Sodium Chloride 1,000 ML IVC SCH ×4 (01:24→23:20)
[2021-10-22] MEDS: Norepinephrine 4 MG/254 ML IV.SOLN IVC SCH ×3 (01:24→16:28)
[2021-10-22] MEDS: Insulin LISPRO 300 UNITS/3 ML VIAL SUBQ SCH ×5 (03:17→21:48)
[2021-10-22] MEDS: Artificial Tears SOLN 15 ML BOTTLE BOTH EYES SCH ×5 (03:17→21:46)
[2021-10-22] MEDS: Piperacillin/Tazobactam 3.375 GM in 0.9 % Sodium Chloride Mini Bag 100 ML IVPB SCH ×3 (03:19→21:46)
[2021-10-22 04:00] LABS: VBG Ionized Calcium 1.11 mmol/L (1.15-1.35)
[2021-10-22 04:23] LABS: Calcium 7.2 mg/dL (8.6-10.3); Magnesium 2.2 mg/dL (1.6-2.6); Phosphorous 4.3 mg/dL (2.7-4.5); Potassium 5.5 mEq/L (3.5-5.1)
[2021-10-22] MEDS: FentaNYL (PF) 1,000 MCG/100 ML IV.SOLN IVC SCH ×4 (04:53→21:44)
[2021-10-22 05:04] LABS: ABG Base Excess -5 mEq/L (-2 to 3); ABG HCO3 20 mEq/L (21-27); ABG Oxygen Saturation 92 % (95-98); ABG PCO2 38 mmHg (35-45); ABG PH 7.34 pH Units (7.32-7.45); ABG PO2 68 mmHg (85-104); ABG TCO2 22 mEq/L (20-26); Blood Gas VT 400 cc
[2021-10-22 05:23] LABS: White Blood Count 14.2 K/mcL (4.3-11.1)
[2021-10-22 05:24] LABS: Basophils % 0.2 %; Immature Granulocytes % 0.5 % (0-4); Lymphocytes # 0.4 K/mcL (0.6-4.6); Lymphocytes % 2.6 %; Mean Corpuscular HGB Conc 33.3 g/dL (31.6-35.5); Mean Corpuscular Hemoglobin 32.3 pg (28.0-33.3); Mean Platelet Volume 10.7 fL (9.4-12.4); Monocytes % 7.1 %; Neutrophils # 12.8 K/mcL (1.6-8.9); Platelet Count 272 K/mcL (140-400); Red Blood Count 3.71 M/mcL (4.19-5.50); Red Cell Distribution Width 13.9 % (11.5-14.5); Segmented Neutrophils % 89.9 %
[2021-10-22] MEDS: Chlorhexidine Rinse 15 ML MOUTHWASH MM SCH ×2 (08:46→21:44)
[2021-10-22] MEDS: Aspirin 81 MG TAB.CHEW GTUBE SCH (08:47)
[2021-10-22] MEDS: Dexamethasone Sodium Phos/PF 10 MG/ML VIAL IVP SCH (08:47)
[2021-10-22] MEDS: Pantoprazole 40 MG VIAL IVP SCH (08:47)
[2021-10-22] MEDS: Cholecalciferol (D-3) 1,000 UNIT (25MCG) TABLET GTUBE SCH (08:47)
[2021-10-22] MEDS: Apixaban 5 MG TABLET PO SCH ×2 (08:47→21:44)
[2021-10-22] MEDS: Lactobacillus 1 EACH CAP.SPRINK PO SCH ×2 (08:47→21:45)
[2021-10-22] MEDS: Lidocaine 5% OINT 35 APPL/35.44 GM TUBE TP SCH ×4 (08:48→21:45)
[2021-10-22] MEDS: Vasopressin 40 UNIT in D5% in Water 100 ML IVC SCH (12:22)
[2021-10-22] MEDS ORDERED: 0.9 % Sodium Chloride 500 ML ONE (15:19)
[2021-10-22] MEDS ORDERED: 0.9 % Sodium Chloride 500 ML IVC ONE (15:23)
[2021-10-22 16:55] LABS: Influenza A PCR Body Fluid NOT DETECTED; Influenza B PCR Body Fluid NOT DETECTED; RVP Body Fluid Source BAL
[2021-10-23] MEDS: Artificial Tears SOLN 15 ML BOTTLE BOTH EYES SCH ×7 (00:17→23:20)
[2021-10-23] MEDS: Insulin LISPRO 300 UNITS/3 ML VIAL SUBQ SCH ×6 (00:17→21:00)
[2021-10-23] MEDS: Vasopressin 40 UNIT in D5% in Water 100 ML IVC SCH (01:43)
[2021-10-23] MEDS: FentaNYL (PF) 1,000 MCG/100 ML IV.SOLN IVC SCH ×4 (01:48→19:25)
[2021-10-23] MEDS: Piperacillin/Tazobactam 3.375 GM in 0.9 % Sodium Chloride Mini Bag 100 ML IVPB SCH ×3 (04:09→18:47)
[2021-10-23] MEDS: Norepinephrine 4 MG/254 ML IV.SOLN IVC SCH ×2 (04:12→23:05)
[2021-10-23 04:44] LABS: Basophils % 0.2 %; Hematocrit 36.4 % (37.5-50.1); Immature Granulocytes % 0.7 % (0-4); Lymphocytes # 0.7 K/mcL (0.6-4.6); Lymphocytes % 3.1 %; Mean Corpuscular Hemoglobin 32.3 pg (28.0-33.3); Mean Corpuscular Volume 98.1 fL (83.0-100.0); Mean Platelet Volume 10.6 fL (9.4-12.4); Monocytes # 1.8 K/mcL (0.0-1.3); Monocytes % 8.4 %; Neutrophils # 18.5 K/mcL (1.6-8.9); Nucleated Red Blood Cells 0.6 /100 WBC (0); Platelet Count 256 K/mcL (140-400); Red Blood Count 3.71 M/mcL (4.19-5.50); Red Cell Distribution Width 14.1 % (11.5-14.5); Segmented Neutrophils % 87.6 %; White Blood Count 21.1 K/mcL (4.3-11.1)
[2021-10-23 04:47] LABS: ABG Base Excess -6 mEq/L (-2 to 3); ABG HCO3 20 mEq/L (21-27); ABG Oxygen Saturation 92 % (95-98); ABG PCO2 41 mmHg (35-45); ABG PO2 71 mmHg (85-104); ABG TCO2 22 mEq/L (20-26); Blood Gas VT 400 cc
[2021-10-23 04:54] LABS: VBG Ionized Calcium 1.11 mmol/L (1.15-1.35)
[2021-10-23 05:01] LABS: Calcium 7.3 mg/dL (8.6-10.3); Magnesium 2.4 mg/dL (1.6-2.6); Phosphorous 4.5 mg/dL (2.7-4.5); Potassium 5.6 mEq/L (3.5-5.1)
[2021-10-23] MEDS: 0.9 % Sodium Chloride 1,000 ML IVC SCH ×4 (05:39→21:17)
[2021-10-23] MEDS: SODIUM ZIRCONIUM CYCLOSILICATE 5 GM POWD.PACK PO SCH (08:59)
[2021-10-23] MEDS: Dexamethasone Sodium Phos/PF 10 MG/ML VIAL IVP SCH (08:59)
[2021-10-23] MEDS: Pantoprazole 40 MG VIAL IVP SCH (08:59)
[2021-10-23] MEDS: Lactobacillus 1 EACH CAP.SPRINK PO SCH ×2 (08:59→21:25)
[2021-10-23] MEDS: Chlorhexidine Rinse 15 ML MOUTHWASH MM SCH ×2 (08:59→21:24)
[2021-10-23] MEDS: Cholecalciferol (D-3) 1,000 UNIT (25MCG) TABLET GTUBE SCH (09:00)
[2021-10-23] MEDS: Aspirin 81 MG TAB.CHEW GTUBE SCH (09:00)
[2021-10-23] MEDS: Apixaban 5 MG TABLET PO SCH ×2 (09:00→21:26)
[2021-10-23] MEDS: Lidocaine 5% OINT 35 APPL/35.44 GM TUBE TP SCH ×4 (09:04→21:18)
[2021-10-23] MEDS ORDERED: Apixaban 5 MG TABLET PO ONE (10:29)
[2021-10-23 11:55] LABS: RSV PCR Body Fluid NOT DETECTED
[2021-10-23 14:17] LABS: Thyroid Stimulating Hormone 0.956 mcIU/mL (0.340-5.600)
[2021-10-24] MEDS: Insulin LISPRO 300 UNITS/3 ML VIAL SUBQ SCH ×7 (00:28→23:24)
[2021-10-24] MEDS: 0.9 % Sodium Chloride 1,000 ML IVC SCH ×3 (00:55→14:22)
[2021-10-24] MEDS: FentaNYL (PF) 1,000 MCG/100 ML IV.SOLN IVC SCH ×4 (01:25→22:00)
[2021-10-24] MEDS: Piperacillin/Tazobactam 3.375 GM in 0.9 % Sodium Chloride Mini Bag 100 ML IVPB SCH ×3 (02:35→20:38)
[2021-10-24 04:11] LABS: ABG Base Excess -7 mEq/L (-2 to 3); ABG HCO3 18 mEq/L (21-27); ABG Oxygen Saturation 96 % (95-98); ABG PCO2 35 mmHg (35-45); ABG PH 7.33 pH Units (7.32-7.45); ABG PO2 85 mmHg (85-104); ABG TCO2 19 mEq/L (20-26); Blood Gas Modality ASSIST CONTROL; Blood Gas VT 400 cc
[2021-10-24 04:16] LABS: Eosinophils % 0.1 %; Hemoglobin 12.1 g/dL (12.9-16.9)
[2021-10-24 04:18] LABS: Basophils % 0.1 %; Hematocrit 36.9 % (37.5-50.1); Immature Granulocytes % 0.7 % (0-4); Lymphocytes % 3.6 %; Mean Corpuscular HGB Conc 32.8 g/dL (31.6-35.5); Mean Corpuscular Hemoglobin 32.2 pg (28.0-33.3); Mean Corpuscular Volume 98.1 fL (83.0-100.0); Mean Platelet Volume 10.9 fL (9.4-12.4); Monocytes # 1.9 K/mcL (0.0-1.3); Neutrophils # 23.6 K/mcL (1.6-8.9); Nucleated Red Blood Cells 0.3 /100 WBC (0); Platelet Count 247 K/mcL (140-400); Red Blood Count 3.76 M/mcL (4.19-5.50); Red Cell Distribution Width 14.2 % (11.5-14.5); Segmented Neutrophils % 88.5 %; White Blood Count 26.7 K/mcL (4.3-11.1)
[2021-10-24] MEDS: Artificial Tears SOLN 15 ML BOTTLE BOTH EYES SCH ×6 (04:24→23:22)
[2021-10-24 04:34] LABS: Calcium 7.2 mg/dL (8.6-10.3); Potassium 5.5 mEq/L (3.5-5.1)
[2021-10-24 04:35] LABS: Albumin 2.2 g/dL (3.5-5.7); Albumin/Globulin Ratio 0.9 (1.1-2.2); Calcium 7.2 mg/dL (8.6-10.3); Globulin 2.4 g/dL (2.4-3.5); Magnesium 2.5 mg/dL (1.6-2.6); Phosphorous 4.4 mg/dL (2.7-4.5); Potassium 5.5 mEq/L (3.5-5.1); Total Protein 4.6 g/dL (6.4-8.9)
[2021-10-24] MEDS: Vasopressin 40 UNIT in D5% in Water 100 ML IVC SCH (05:55)
[2021-10-24] MEDS: Pantoprazole 40 MG VIAL IVP SCH (07:52)
[2021-10-24] MEDS: Chlorhexidine Rinse 15 ML MOUTHWASH MM SCH ×2 (07:53→20:38)
[2021-10-24] MEDS: Cholecalciferol (D-3) 1,000 UNIT (25MCG) TABLET GTUBE SCH (07:53)
[2021-10-24] MEDS: Apixaban 5 MG TABLET PO SCH ×2 (07:53→20:44)
[2021-10-24] MEDS: Dexamethasone Sodium Phos/PF 10 MG/ML VIAL IVP SCH (07:53)
[2021-10-24] MEDS: SODIUM ZIRCONIUM CYCLOSILICATE 5 GM POWD.PACK PO SCH (07:54)
[2021-10-24] MEDS: Aspirin 81 MG TAB.CHEW GTUBE SCH (07:54)
[2021-10-24] MEDS: Lactobacillus 1 EACH CAP.SPRINK PO SCH ×2 (07:58→20:44)
[2021-10-24] MEDS: Lidocaine 5% OINT 35 APPL/35.44 GM TUBE TP SCH ×4 (08:36→20:44)
[2021-10-24] MEDS: Dexmedetomidine HCl 400 MCG/100 ML MLS IVC SCH (10:25)
[2021-10-24] MEDS: Cisatracurium 200 MG in 0.9 % Sodium Chloride 180 ML IVC SCH (11:46)
[2021-10-24] MEDS: Norepinephrine 4 MG/254 ML IV.SOLN IVC SCH (14:05)
[2021-10-24] MEDS ORDERED: 0.9 % Sodium Chloride 1,000 ML ONE (14:21)
[2021-10-25] MEDS: FentaNYL (PF) 1,000 MCG/100 ML IV.SOLN IVC SCH ×3 (02:04→23:45)
[2021-10-25] MEDS: Piperacillin/Tazobactam 3.375 GM in 0.9 % Sodium Chloride Mini Bag 100 ML IVPB SCH ×3 (03:12→18:21)
[2021-10-25] MEDS: Artificial Tears SOLN 15 ML BOTTLE BOTH EYES SCH ×5 (03:12→20:31)
[2021-10-25] MEDS: Insulin LISPRO 300 UNITS/3 ML VIAL SUBQ SCH ×5 (03:13→20:31)
[2021-10-25] MEDS: Vasopressin 40 UNIT in D5% in Water 100 ML IVC SCH (03:49)
[2021-10-25 04:19] LABS: ABG Base Excess -8 mEq/L (-2 to 3); ABG HCO3 18 mEq/L (21-27); ABG Oxygen Saturation 94 % (95-98); ABG PCO2 35 mmHg (35-45); ABG PO2 76 mmHg (85-104); ABG TCO2 19 mEq/L (20-26); Blood Gas VT 420 cc
[2021-10-25 04:35] LABS: VBG Ionized Calcium 1.19 mmol/L (1.15-1.35)
[2021-10-25 04:37] LABS: Basophils % 0.1 %; Eosinophils # 0.1 K/mcL (0.0-0.6); Eosinophils % 0.3 %; Hematocrit 34.7 % (37.5-50.1); Hemoglobin 11.4 g/dL (12.9-16.9); Immature Granulocytes % 0.9 % (0-4); Lymphocytes # 0.8 K/mcL (0.6-4.6); Lymphocytes % 3.7 %; Mean Corpuscular HGB Conc 32.9 g/dL (31.6-35.5); Mean Corpuscular Hemoglobin 32.8 pg (28.0-33.3); Mean Corpuscular Volume 99.7 fL (83.0-100.0); Mean Platelet Volume 10.9 fL (9.4-12.4); Monocytes # 1.1 K/mcL (0.0-1.3); Monocytes % 4.7 %; Neutrophils # 20.1 K/mcL (1.6-8.9); Nucleated Red Blood Cells 0.2 /100 WBC (0); Platelet Count 185 K/mcL (140-400); Red Blood Count 3.48 M/mcL (4.19-5.50); Red Cell Distribution Width 14.6 % (11.5-14.5); Segmented Neutrophils % 90.3 %; White Blood Count 22.3 K/mcL (4.3-11.1)
[2021-10-25 04:51] LABS: Albumin 2.2 g/dL (3.5-5.7); Albumin/Globulin Ratio 1.1 (1.1-2.2); Bilirubin,Direct 0.4 mg/dL (0.0-0.2); Bilirubin,Indirect 0.7 mg/dL (0.0-1.0); Bilirubin,Total 1.1 mg/dL (0.3-1.0); Calcium 7.2 mg/dL (8.6-10.3); Magnesium 2.6 mg/dL (1.6-2.6); Phosphorous 4.5 mg/dL (2.7-4.5); Potassium 5.7 mEq/L (3.5-5.1); Total Protein 4.2 g/dL (6.4-8.9)
[2021-10-25] MEDS: Dexmedetomidine HCl 400 MCG/100 ML MLS IVC SCH (05:14)
[2021-10-25] MEDS: SODIUM ZIRCONIUM CYCLOSILICATE 5 GM POWD.PACK PO SCH (07:39)
[2021-10-25] MEDS: Apixaban 5 MG TABLET PO SCH ×2 (07:39→20:33)
[2021-10-25] MEDS: Chlorhexidine Rinse 15 ML MOUTHWASH MM SCH ×2 (07:39→20:32)
[2021-10-25] MEDS: Dexamethasone Sodium Phos/PF 10 MG/ML VIAL IVP SCH (07:39)
[2021-10-25] MEDS: Cholecalciferol (D-3) 1,000 UNIT (25MCG) TABLET GTUBE SCH (07:39)
[2021-10-25] MEDS: Lactobacillus 1 EACH CAP.SPRINK PO SCH ×2 (07:39→20:34)
[2021-10-25] MEDS: Aspirin 81 MG TAB.CHEW GTUBE SCH (07:39)
[2021-10-25] MEDS: Pantoprazole 40 MG VIAL IVP SCH (07:40)
[2021-10-25] MEDS: Lidocaine 5% OINT 35 APPL/35.44 GM TUBE TP SCH ×4 (07:40→20:34)
[2021-10-25] MEDS: Norepinephrine 4 MG/254 ML IV.SOLN IVC SCH ×2 (10:55→20:31)
[2021-10-25] MEDS ORDERED: *HR* Midazolam HCl 5 MG/5 ML VIAL IVP ONE (21:10)
[2021-10-26] MEDS: Artificial Tears SOLN 15 ML BOTTLE BOTH EYES SCH ×7 (00:10→23:55)
[2021-10-26] MEDS: Dexmedetomidine HCl 400 MCG/100 ML MLS IVC SCH ×2 (00:10→21:00)
[2021-10-26] MEDS: Insulin LISPRO 300 UNITS/3 ML VIAL SUBQ SCH ×6 (00:11→21:00)
[2021-10-26] MEDS: Piperacillin/Tazobactam 3.375 GM in 0.9 % Sodium Chloride Mini Bag 100 ML IVPB SCH ×3 (03:49→20:56)
[2021-10-26] MEDS: Vasopressin 40 UNIT in D5% in Water 100 ML IVC SCH (03:52)
[2021-10-26] MEDS: Norepinephrine 4 MG/254 ML IV.SOLN IVC SCH ×3 (03:52→20:54)
[2021-10-26 04:00] LABS: Hemoglobin 12.3 g/dL (12.9-16.9); Mean Corpuscular HGB Conc 31.5 g/dL (31.6-35.5); Mean Corpuscular Hemoglobin 31.9 pg (28.0-33.3); Mean Platelet Volume 10.9 fL (9.4-12.4); Platelet Count 193 K/mcL (140-400); Red Blood Count 3.86 M/mcL (4.19-5.50); Red Cell Distribution Width 15.1 % (11.5-14.5); White Blood Count 24.3 K/mcL (4.3-11.1)
[2021-10-26 04:01] LABS: VBG Ionized Calcium 1.23 mmol/L (1.15-1.35)
[2021-10-26 04:01] LABS: ABG Base Excess -9 mEq/L (-2 to 3); ABG HCO3 19 mEq/L (21-27); ABG Oxygen Saturation 85 % (95-98); ABG PCO2 49 mmHg (35-45); ABG PO2 62 mmHg (85-104); ABG TCO2 21 mEq/L (20-26); Blood Gas VT 420 cc
[2021-10-26 04:19] LABS: Albumin 2.4 g/dL (3.5-5.7); Bilirubin,Direct 0.6 mg/dL (0.0-0.2); Bilirubin,Indirect 0.7 mg/dL (0.0-1.0); Bilirubin,Total 1.3 mg/dL (0.3-1.0); Calcium 7.8 mg/dL (8.6-10.3); Globulin 2.3 g/dL (2.4-3.5); Magnesium 2.8 mg/dL (1.6-2.6); Potassium 5.8 mEq/L (3.5-5.1); Total Protein 4.7 g/dL (6.4-8.9)
[2021-10-26] MEDS ORDERED: Calcium Gluconate 1gm/50mL 1 GM/50 ML BAG IVPB PRN (04:45)
[2021-10-26] MEDS ORDERED: Insulin Human Regular 10 UNIT in 0.9 % Sodium Chloride 10 ML IV ONE (04:46)
[2021-10-26] MEDS ORDERED: *HR* Dextrose 50 % in Water (Syg) 50 ML SYRINGE IVP ONE (04:46)
[2021-10-26] MEDS: Chlorhexidine Rinse 15 ML MOUTHWASH MM SCH ×2 (09:08→20:53)
[2021-10-26] MEDS: Pantoprazole 40 MG VIAL IVP SCH (09:08)
[2021-10-26] MEDS: SODIUM ZIRCONIUM CYCLOSILICATE 5 GM POWD.PACK PO SCH (09:09)
[2021-10-26] MEDS: Aspirin 81 MG TAB.CHEW GTUBE SCH (09:10)
[2021-10-26] MEDS: Dexamethasone Sodium Phos/PF 10 MG/ML VIAL IVP SCH (09:10)
[2021-10-26] MEDS: Lactobacillus 1 EACH CAP.SPRINK PO SCH ×2 (09:10→20:55)
[2021-10-26] MEDS: Cholecalciferol (D-3) 1,000 UNIT (25MCG) TABLET GTUBE SCH (09:10)
[2021-10-26] MEDS: Apixaban 5 MG TABLET PO SCH ×2 (09:11→20:55)
[2021-10-26] MEDS: Lidocaine 5% OINT 35 APPL/35.44 GM TUBE TP SCH ×4 (09:13→23:55)
[2021-10-26 11:04] LABS: Calcium 7.9 mg/dL (8.6-10.3); Potassium 5.5 mEq/L (3.5-5.1)
[2021-10-27] MEDS: FentaNYL (PF) 1,000 MCG/100 ML IV.SOLN IVC SCH ×2 (00:56→23:58)
[2021-10-27 03:28] LABS: Hematocrit 35.7 % (37.5-50.1); Hemoglobin 11.4 g/dL (12.9-16.9); Mean Corpuscular HGB Conc 31.9 g/dL (31.6-35.5); Mean Corpuscular Hemoglobin 31.9 pg (28.0-33.3); Mean Platelet Volume 11.1 fL (9.4-12.4); Platelet Count 159 K/mcL (140-400); Red Blood Count 3.57 M/mcL (4.19-5.50); Red Cell Distribution Width 15.9 % (11.5-14.5); White Blood Count 24.2 K/mcL (4.3-11.1)
[2021-10-27 03:36] LABS: VBG Ionized Calcium 1.27 mmol/L (1.15-1.35)
[2021-10-27 03:47] LABS: Albumin 2.3 g/dL (3.5-5.7); Albumin/Globulin Ratio 1.2 (1.1-2.2); Bilirubin,Direct 0.4 mg/dL (0.0-0.2); Bilirubin,Indirect 0.6 mg/dL (0.0-1.0); Calcium 7.8 mg/dL (8.6-10.3); Magnesium 2.7 mg/dL (1.6-2.6); Phosphorous 4.1 mg/dL (2.7-4.5); Total Protein 4.3 g/dL (6.4-8.9)
[2021-10-27 04:08] LABS: ABG Base Excess -4 mEq/L (-2 to 3); ABG HCO3 22 mEq/L (21-27); ABG Oxygen Saturation 93 % (95-98); ABG PCO2 44 mmHg (35-45); ABG PH 7.31 pH Units (7.32-7.45); ABG PO2 72 mmHg (85-104); ABG TCO2 24 mEq/L (20-26); Blood Gas VT 420 cc
[2021-10-27] MEDS: Piperacillin/Tazobactam 3.375 GM in 0.9 % Sodium Chloride Mini Bag 100 ML IVPB SCH (04:59)
[2021-10-27] MEDS: Vasopressin 40 UNIT in D5% in Water 100 ML IVC SCH (04:59)
[2021-10-27] MEDS: Norepinephrine 4 MG/254 ML IV.SOLN IVC SCH ×4 (05:00→23:14)
[2021-10-27] MEDS: Artificial Tears SOLN 15 ML BOTTLE BOTH EYES SCH ×6 (05:00→23:21)
[2021-10-27] MEDS: Insulin LISPRO 300 UNITS/3 ML VIAL SUBQ SCH ×7 (05:00→23:23)
[2021-10-27] MEDS: Chlorhexidine Rinse 15 ML MOUTHWASH MM SCH ×2 (09:26→20:07)
[2021-10-27] MEDS: Aspirin 81 MG TAB.CHEW GTUBE SCH (09:27)
[2021-10-27] MEDS: Cholecalciferol (D-3) 1,000 UNIT (25MCG) TABLET GTUBE SCH (09:27)
[2021-10-27] MEDS: Pantoprazole 40 MG VIAL IVP SCH (09:27)
[2021-10-27] MEDS: Apixaban 5 MG TABLET PO SCH ×2 (09:27→20:07)
[2021-10-27] MEDS: Lactobacillus 1 EACH CAP.SPRINK PO SCH ×2 (09:27→20:08)
[2021-10-27] MEDS: Lidocaine 5% OINT 35 APPL/35.44 GM TUBE TP SCH ×4 (09:28→20:08)
[2021-10-27] MEDS: SODIUM ZIRCONIUM CYCLOSILICATE 5 GM POWD.PACK PO SCH (09:28)
[2021-10-27] MEDS ORDERED: Artificial Tears SOLN 15 ML BOTTLE BOTH EYES PRN (10:03)
[2021-10-27] MEDS: D5% in Water 1,000 ML IVC SCH (12:30)
[2021-10-27] MEDS: Dexmedetomidine HCl 400 MCG/100 ML MLS IVC SCH (19:59)
[2021-10-28] MEDS: Vasopressin 40 UNIT in D5% in Water 100 ML IVC SCH (01:48)
[2021-10-28 03:50] LABS: Hematocrit 33.9 % (37.5-50.1); Hemoglobin 11.2 g/dL (12.9-16.9); Mean Corpuscular Hemoglobin 33.2 pg (28.0-33.3); Mean Corpuscular Volume 100.6 fL (83.0-100.0); Mean Platelet Volume 11.5 fL (9.4-12.4); Nucleated Red Blood Cells 1.5 /100 WBC (0); Platelet Count 145 K/mcL (140-400); Red Blood Count 3.37 M/mcL (4.19-5.50); Red Cell Distribution Width 16.8 % (11.5-14.5); White Blood Count 23.6 K/mcL (4.3-11.1)
[2021-10-28 03:58] LABS: VBG Ionized Calcium 1.27 mmol/L (1.15-1.35)
[2021-10-28 04:13] LABS: Albumin 2.1 g/dL (3.5-5.7); Albumin/Globulin Ratio 1.1 (1.1-2.2); Bilirubin,Direct 0.3 mg/dL (0.0-0.2); Bilirubin,Indirect 0.5 mg/dL (0.0-1.0); Bilirubin,Total 0.8 mg/dL (0.3-1.0); Calcium 7.9 mg/dL (8.6-10.3); Globulin 1.9 g/dL (2.4-3.5); Magnesium 2.6 mg/dL (1.6-2.6); Phosphorous 3.9 mg/dL (2.7-4.5); Potassium 4.1 mEq/L (3.5-5.1)
[2021-10-28 04:29] LABS: ABG Base Excess -4 mEq/L (-2 to 3); ABG HCO3 21 mEq/L (21-27); ABG Oxygen Saturation 92 % (95-98); ABG PCO2 35 mmHg (35-45); ABG PH 7.38 pH Units (7.32-7.45); ABG PO2 66 mmHg (85-104); ABG TCO2 22 mEq/L (20-26); Blood Gas Modality ASSIST CONTROL; Blood Gas VT 420 cc
[2021-10-28 04:42] LABS: Lymphocytes # 0.5 K/mcL (0.6-4.6)
[2021-10-28] MEDS: Insulin LISPRO 300 UNITS/3 ML VIAL SUBQ SCH ×6 (04:52→23:49)
[2021-10-28] MEDS: Artificial Tears SOLN 15 ML BOTTLE BOTH EYES SCH ×5 (04:52→20:47)
[2021-10-28 05:16] LABS: Monocytes # 0.5 K/mcL (0.0-1.3); Neutrophils # 22.7 K/mcL (1.6-8.9); Platelet Estimate Normal (Normal)
[2021-10-28] MEDS: D5% in Water 1,000 ML IVC SCH ×2 (05:40→21:07)
[2021-10-28] MEDS: Cholecalciferol (D-3) 1,000 UNIT (25MCG) TABLET GTUBE SCH (07:36)
[2021-10-28] MEDS: Pantoprazole 40 MG VIAL IVP SCH (07:36)
[2021-10-28] MEDS: Apixaban 5 MG TABLET PO SCH ×2 (07:36→20:45)
[2021-10-28] MEDS: SODIUM ZIRCONIUM CYCLOSILICATE 5 GM POWD.PACK PO SCH (07:36)
[2021-10-28] MEDS: Lactobacillus 1 EACH CAP.SPRINK PO SCH ×2 (07:36→20:44)
[2021-10-28] MEDS: Aspirin 81 MG TAB.CHEW GTUBE SCH (07:36)
[2021-10-28] MEDS: Lidocaine 5% OINT 35 APPL/35.44 GM TUBE TP SCH ×4 (07:37→20:49)
[2021-10-28] MEDS: Chlorhexidine Rinse 15 ML MOUTHWASH MM SCH ×2 (07:38→20:44)
[2021-10-28] MEDS: Dexmedetomidine HCl 400 MCG/100 ML MLS IVC SCH (12:21)
[2021-10-28] MEDS: Piperacillin/Tazobactam 3.375 GM in 0.9 % Sodium Chloride Mini Bag 100 ML IVPB SCH ×2 (13:22→20:45)
[2021-10-28] MEDS: Norepinephrine 4 MG/254 ML IV.SOLN IVC SCH ×2 (14:59→20:11)
[2021-10-28] MEDS ORDERED: 0.9 % Sodium Chloride 1,000 ML ONE (18:55)
[2021-10-28] MEDS: FentaNYL (PF) 1,000 MCG/100 ML IV.SOLN IVC SCH (22:59)
[2021-10-29] MEDS: Artificial Tears SOLN 15 ML BOTTLE BOTH EYES SCH ×2 (00:38→02:23)
[2021-10-29 02:42] VITALS: PULSE 60
[2021-10-29 03:16] VITALS: TEMP 98.9
[2021-10-29 03:52] LABS: ABG Base Excess -5 mEq/L (-2 to 3); ABG HCO3 23 mEq/L (21-27); ABG Oxygen Saturation 86 % (95-98); ABG PCO2 56 mmHg (35-45); ABG PH 7.23 pH Units (7.32-7.45); ABG PO2 62 mmHg (85-104); ABG TCO2 25 mEq/L (20-26); Blood Gas Modality AF; Blood Gas VT 420 cc
[2021-10-29 04:09] LABS: Hematocrit 32.7 % (37.5-50.1); Hemoglobin 10.6 g/dL (12.9-16.9); Lymphocytes # 0.5 K/mcL (0.6-4.6); Mean Corpuscular HGB Conc 32.4 g/dL (31.6-35.5); Mean Corpuscular Hemoglobin 33.4 pg (28.0-33.3); Mean Corpuscular Volume 103.2 fL (83.0-100.0); Mean Platelet Volume 11.6 fL (9.4-12.4); Nucleated Red Blood Cells 0.6 /100 WBC (0); Platelet Count 106 K/mcL (140-400); Red Blood Count 3.17 M/mcL (4.19-5.50); Red Cell Distribution Width 17.3 % (11.5-14.5); White Blood Count 22.4 K/mcL (4.3-11.1)
[2021-10-29 04:11] LABS: VBG Ionized Calcium 1.25 mmol/L (1.15-1.35)
[2021-10-29 04:26] LABS: Albumin/Globulin Ratio 1.1 (1.1-2.2); Bilirubin,Direct 0.3 mg/dL (0.0-0.2); Bilirubin,Indirect 0.6 mg/dL (0.0-1.0); Bilirubin,Total 0.9 mg/dL (0.3-1.0); Calcium 7.6 mg/dL (8.6-10.3); Globulin 1.8 g/dL (2.4-3.5); Magnesium 2.5 mg/dL (1.6-2.6); Phosphorous 4.5 mg/dL (2.7-4.5); Potassium 4.1 mEq/L (3.5-5.1); Total Protein 3.8 g/dL (6.4-8.9)
[2021-10-29] MEDS: Insulin LISPRO 300 UNITS/3 ML VIAL SUBQ SCH (04:38)
[2021-10-29] MEDS: Piperacillin/Tazobactam 3.375 GM in 0.9 % Sodium Chloride Mini Bag 100 ML IVPB SCH (05:10)
[2021-10-29 05:49] LABS: Eosinophils # 0.5 K/mcL (0.0-0.6); Monocytes # 0.5 K/mcL (0.0-1.3); Neutrophils # 21.1 K/mcL (1.6-8.9); Platelet Estimate Decreased (Normal)
[2021-10-29 08:06] VITALS: BP 110/35; O2SAT 83
[2021-10-29] MEDS ORDERED: Atropine Sulfate 1% 40 DROP/2 ML BOTTLE SL PRN (08:12)
[2021-10-29] MEDS ORDERED: Scopolamine Patch 1.5 MG PATCH.TD72 TD SCH (08:15)
[2021-10-29] MEDS ORDERED: *HR* FentaNYL (PF) 100 MCG/2 ML VIAL IVP PRN (08:35)
[2021-10-29] MEDS ORDERED: *HR* LORazepam 2 MG/ML VIAL IVP PRN (08:35)
[2021-10-29] MEDS ORDERED: FentaNYL (PF) 1,000 MCG/100 ML IV.SOLN IVC SCH ×2 (08:35→08:45)
[2021-10-29] MEDS ORDERED: Norepinephrine 4 MG/254 ML IV.SOLN IVC SCH (08:45)
== END 2021-10-29 09:18 | disposition expired | DRG 207 ==
LOC: EMEROOARM 13:02 → 3BNU 13:02 → SUATTDRO 16:17 → 3BNU 17:26 → SUATTDRO 10-15 19:51 → 2NENU 10-17 17:08 → ICNU 10-18 17:12
PROVIDERS: ADMIT General Practice; ATTEND Internal Medicine